=== PATIENT | female | born 1995 | race Caucasian/White ===

== ENCOUNTER → 2018-04-06 | Outpatient (CLI) | payer OTHER, SELFPAY ==
--- NOTE | 2018-04-06 | DI.MRI.S_ITS ---
PROCEDURE: MR LOWER LEG RT WO CON INDICATIONS: EXERTIONAL COMPARTMENT SYNDROME OF RIGHT LOWER EXT TECHNIQUE: Noncontrast coronal and sagittal T1 spin echo and STIR; axial T1 spin echo and T2 fast spin echo with fat saturation through the calf region optimized for right calf visualization on sagittal and axial imaging and with bilateral image acquisition on coronal imaging.. COMPARISON: [facility] [place] Christine, CR, XR TIBIA FIBULA RIGHT, 03/30/2018, 16:20. FINDINGS: Image quality: Excellent. Bones: The visualized bone marrow demonstrates normal signal on all sequences. The overlying cortex appears intact. No fractures lines or intra-osseous lesions. Soft tissues: The scanned muscles demonstrate normal overall bulk and internal signal. There is a nonspecific finding of mild elevated fluid signal in the anterior soft tissues of the midcalf tapering above and below and extending over a craniocaudad length of 10 cm, without underlying associated bone bruising or edema tracking through the overlying superficial muscular fascial plane into the musculature itself. Subcutaneous tissues appear normal as well. No soft tissue masses are present. IMPRESSION: Mild anterior midcalf soft tissue edema involving the subcutaneous fat and tracking to the superficial muscular fascial plane. No underlying cortical abnormality or osseous edema is found. The appearance could reflect sequela of prior blunt injury to the soft tissues in that area. Dictated by: Zeferino Ortiz M.D. on 04/07/2018 at 12:45 Approved by: Zeferino Ortiz M.D. on 04/07/2018 at 12:51
== END ==
LOC: MRI 16:27
PROVIDERS: Visit Provider Orthopaedic Surgery Foot and Ankle Surgery
DX: T79.A21A Traumatic compartment syndrome of right lower extremity, initial encounter (principal)
CPT/HCPCS: 73718

== ENCOUNTER → 2018-07-01 15:13 | Outpatient (CLI) | payer OTHER, SELFPAY ==
--- NOTE | 2018-07-01 | DI.US.S_ITS ---
PROCEDURE: US PERIPH VENOUS LOW EXTREM RT INDICATIONS: RO DVP TECHNIQUE: Real-time imaging, as well as color and pulse Doppler interrogation, were performed of the lower extremity deep veins from the inguinal ligament to the popliteal fossa. COMPARISON: None. FINDINGS: The deep veins are normally compressible, and free of intraluminal thrombus. Color and pulse Doppler demonstrate normal phasic intraluminal flow. There is normal augmentation response to distal compression maneuver. IMPRESSION: No visualized deep venous thrombosis. Dictated by: Akua Reyna M.D. on 07/01/2018 at 16:20 Approved by: Akua Reyna M.D. on 07/01/2018 at 16:20
== END ==
PROVIDERS: Visit Provider Orthopaedic Surgery Foot and Ankle Surgery
DX: T81.49XA Infection following a procedure, other surgical site, initial encounter (principal); M79.89 Other specified soft tissue disorders
CPT/HCPCS: 93971

== ENCOUNTER → 2019-02-28 15:16 | Outpatient (CLI) | payer OTHER, SELFPAY ==
[2019-02-28 15:53] LABS: Appearance Urine UA CLEAR; Bilirubin Urine UA NEGATIVE (NEGATIVE); Color Urine UA YELLOW; Glucose Urine UA NEGATIVE (Negative); Ketones Urine UA NEGATIVE (NEGATIVE); Leukocyte Esterase Urine UA NEGATIVE (NEGATIVE); Nitrite Urine UA NEGATIVE (Negative); Occult Blood Urine UA NEGATIVE (Negative); Protein Urine UA NEGATIVE (Negative); Urobilinogen Urine UA 0.2 E.U./dL (0.2); pH Urine UA 6.5 (4.5-8.0)
[2019-02-28 15:55] LABS: Add Manual Diff / Slide Review NO; Basophils Absolute Auto 0 /uL (0-100); Basophils Percent Auto 0.4 % (0-2); Eosinophils Absolute Auto 100 /uL (0-450); Eosinophils Percent Auto 1.3 % (2-4); Hematocrit 40.4 % (36-46); Hemoglobin 13.4 g/dL (12.0-16.0); Lymphocytes Absolute Auto 2100 /uL (1100-4500); Lymphocytes Percent Auto 33.6 % (25-40); Mean Corpuscular HGB Conc 33.1 % (30-36); Mean Corpuscular Hemoglobin 29.8 PG (26-34); Mean Corpuscular Volume 89.9 fL (80-100); Monocytes Absolute Auto 500 /uL (0-900); Monocytes Percent Auto 7.3 % (3-14); Neutrophils Absolute Auto 3700 /uL (1500-7000); Neutrophils Percent Auto 57.4 % (50-75); Platelet Count 223 X10^3/uL (150-400); Red Blood Cell Count 4.49 X10^6/uL (4.0-5.2); Red Cell Distribution Width 14.5 % (11.6-14.8); White Blood Cell Count 6.4 X10^3/uL (4.5-11.0)
[2019-02-28 16:09] LABS: Hemoglobin A1C% w Est Avg Glu 4.9 % (4.0-6.0)
[2019-02-28 16:38] LABS: Glucose 73 mg/dL (70-100)
[2019-02-28 17:17] LABS: Hepatitis B Surface Antigen NEGATIVE s/c (NEGATIVE); Rubella Antibody IgG 11.6 IU/mL (>15)
[2019-02-28 17:29] LABS: Hep C Virus Ab w/Reflex Quant NEGATIVE s/c (NEGATIVE)
[2019-03-02 17:43] LABS: HIV 1 & 2 Ab/Ag 4th Gen Combo NEGATIVE (NEGATIVE)
[2019-03-02 21:40] LABS: RPR Screen Nonreactive (Nonreactive)
== END ==
DX: Z34.91 Encounter for supervision of normal pregnancy, unspecified, first trimester (principal)
CPT/HCPCS: 36415; 80055; 81003; 82947; 83036; 86787; 86803; 86850; 86900; 86901; 87086; 87389

== ENCOUNTER → 2019-03-08 13:32 | Outpatient (CLI) | payer OTHER, SELFPAY | DX: Z34.02 Encounter for supervision of normal first pregnancy, second trimester (principal); Z3A.13 13 weeks gestation of pregnancy | CPT/HCPCS: 36415; 84163; 84702 ==

== ENCOUNTER → 2019-04-01 15:42 | Outpatient (CLI) | payer OTHER, SELFPAY ==
[2019-04-06 11:52] LABS: Sequential Screen 2nd Trimeste SCREEN NEGATIVE
== END ==
DX: Z34.82 Encounter for supervision of other normal pregnancy, second trimester (principal)
CPT/HCPCS: 36415; 82105; 82677; 84163; 84702; 86336

== ENCOUNTER → 2019-06-08 14:56 | Outpatient (CLI) | payer OTHER, SELFPAY ==
[2019-06-08 17:42] LABS: Hematocrit 35.3 % (36-46); Hemoglobin 11.5 g/dL (12.0-16.0)
[2019-06-08 18:01] LABS: GTT (PREG) 1 Hour PP 50gm Dose 108 mg/dL (76-139)
== END ==
DX: Z34.82 Encounter for supervision of other normal pregnancy, second trimester (principal)
CPT/HCPCS: 36415; 82950; 85014; 85018

== ENCOUNTER → 2019-08-08 10:19 | Outpatient (CLI) | payer OTHER, SELFPAY ==
[2019-08-09 15:19] LABS: Strep Grp B PCR NEG for Grp B Strep
== END ==
DX: Z34.03 Encounter for supervision of normal first pregnancy, third trimester (principal)
CPT/HCPCS: 87653

== ENCOUNTER 2019-09-09 16:30 | Inpatient (IN) | payer OTHER, SELFPAY ==
[2019-09-09 18:07] VITALS: BP 125/74
--- NOTE | 2019-09-09 18:25 | P.HPOB_ITS ---
OB HPI Date/Time Date of admission: 09/09/19 Date Patient Seen: 09/09/19 Time Patient Seen: 18:00 History of Present Condition Chief complaint: LABOR : 1 Para: 0 Estimated Date of Delivery: 09/09/19 Estimated Gestational Age (weeks): 40 Narrative: Mckayla Calvert is a 24 year old at 40 weeks gestation with spontaneous rupture of membranes at approximately 3:45 p.m. today. Patient states contractions began at approximately 5:15 a.m. in the waiting room with the center. complicated by excessive weight gain. History of Present care: good care, initiated at week # (10), number of visits (13) and pounds weight gain (73) Dating criteria: LMP confirmed by 1st trimester US Ultrasounds: normal mid trimester US Obstetrical complications: none Medical complications: none Preadmission Labs Blood type: O (+) positive -: Antibody screen: negative, GBS status: negative, HBsAG: negative, HIV: negative and RPR/VDLR: negative -: Rubella: not immune and Varicella: immune HCT: 40.4 HCAB: negative PAP: Normal Integrated screen: Negative Sequential screen: Negative Urine: Negative 1 hr GTT: 108 Evaluation Evaluation Baseline heart rate: 110 Variability: Moderate (11-25) monitor accelerations: Present monitor decelerations: Variable Contraction Frequency (minutes): 3 Category of Tracing: II Cervical dilation (cm): 1 Cervical effacement (%): 100 station: -2 Non-invasive Membranes Rupture Test: positive [facility] Surgical History H/O fasciotomy (Acute) [place] teeth extracted (Acute) Social History Smoking Status: Never smoker Meds Home Medications and Allergies Home Medications Medication Instructions Recorded Confirmed Type prenat.vits,silvio,zop-gtbg-aafax 1 tab PO DAILY 02/28/19 08/15/19 History omeprazole 20 mg capsule,delayed 20 mg PO DAILY #30 cap 04/01/19 08/15/19 Rx release Double Electric breast Pump and #1 each 09/06/19 Rx Supplies Allergies Allergy/AdvReac Type Severity Reaction Status Date / Time No Known Drug Allergies Allergy Verified 08/15/19 09:12 Review of Systems Constitutional Constitutional: Denies fatigue and Denies fever(s) Cardiovascular Cardiovascular: Denies shortness of breath Respiratory Respiratory: Denies cough and Denies dyspnea Gastrointestinal Gastrointestinal: Denies abdominal pain and Denies change in bowel habits Endocrine Endocrine: Denies fatigue Exam Vital Signs (past 8 hours): Blood pressure 121/78 Heart rate 79 Const General: healthy appearing and in distress (Appears uncomfortable with contractions) HENMT Head: normal to inspection Ears: hearing grossly normal bilaterally Nose: external nose normal Face and sinus: normal facial exam Mouth: oral mucosae normal Eyes General: appearance normal, both eyes and all related structures Neck Neck: normal visual inspection Resp Effort & Inspection: normal respiratory effort Auscultation: clear to auscultation bilaterally Cardio Rate: regular rate Rhythm: regular rhythm Heart Sounds: no murmurs GI Other: Gravid External Female Exam: external appearance normal Manual OB Exam: dilated (1.5), effaced fully and station -2 Presentation: vertex Estimated Weight (lbs): 8 Back/Spine/Pelvis Back: normal to inspection Skin General: no rashes or lesions noted Extrem General: normal to inspection and no pedal edema Assessment and Plan Assessment and Plan Assessment and Plan narrative: 24-year-old at 40 weeks gestation with SROM at 3:45 p.m. today with clear fluid. She is rosa regularly and likely entering active labor. Plan - Expected management - Epidural upon patient request
[2019-09-09 19:41] LABS: Add Manual Diff / Slide Review NO; Basophils Absolute Auto 100 /uL (0-100); Basophils Percent Auto 0.5 % (0-2); Eosinophils Absolute Auto 100 /uL (0-450); Eosinophils Percent Auto 0.5 % (2-4); Hematocrit 35.6 % (36-46); Hemoglobin 11.9 g/dL (12.0-16.0); Lymphocytes Absolute Auto 2900 /uL (1100-4500); Lymphocytes Percent Auto 23.6 % (25-40); Mean Corpuscular HGB Conc 33.4 % (30-36); Mean Corpuscular Hemoglobin 28.7 PG (26-34); Monocytes Absolute Auto 700 /uL (0-900); Monocytes Percent Auto 6.1 % (3-14); Neutrophils Absolute Auto 8400 /uL (1500-7000); Neutrophils Percent Auto 69.3 % (50-75); Platelet Count 162 X10^3/uL (150-400); Red Blood Cell Count 4.14 X10^6/uL (4.0-5.2); Red Cell Distribution Width 14.6 % (11.6-14.8); White Blood Cell Count 12.1 X10^3/uL (4.5-11.0)
[2019-09-09] MEDS: LACTATED RINGERS 1,000 ML 100 ML IV (20:40)
[2019-09-09] MEDS: OXYTOCIN 10 UNIT/ML VIAL IM (23:05)
--- NOTE | 2019-09-09 23:28 | P.PCNOB_ITS ---
Labor & Delivery Delivery date: 09/09/19 Route of delivery: forceps Indication for instrumentation: maternal exhaustion L&D Laceration Description: Perineal - 2nd Degree, Vaginal - 2nd Degree and Labial (right labial first degree) Delivery repair: vicryl Estimated blood loss (mL): 350 Anesthesia type: None Narrative: The patient is a 23-year-old at 40 weeks who gave on 09/09/19 at 10:58 PM. LESLIE: 09/09/19 Hospital problems: 40 weeks of Forceps delivery Maternal exhaustion STAGE I: Labor Patient presented to the center after spontaneous rupture of membranes at 3:45 p.m. with clear fluid. Upon admission she was entering active labor. heart tones were category 1 and 2 throughout stage I due to intermittent variable decelerations. Patient tried nitrous oxide for analgesia however it caused nausea. STAGE II: Delivery Patient was complete and pushed for approximately an hour and a half when the decision was made to consult Dr. Tabares for possible operative delivery due to maternal exhaustion and slow descent with developing caput. Dr. Tabares evaluated the patient and offered forceps delivery which patient accepted. Dr. Tabares applied forceps and pulled while patient pushed to successfully deliver the head at 10:58 p.m. at which point the forceps were removed and remainder of infant delivered easily. Infant was NELIA. There was a loose nuchal cord which infant delivered through. Infant was immediately placed on mother's abdomen. Cord was clamped and cut after approximately 1 minute delay. Apgars were 9 and 9 at 1 and 5 minutes respectively. No resuscitation of the required beyond drying, stimulating and suction. STAGE III: Placenta/Cord Placenta delivered spontaneously at 11:03 p.m. after active management and appeared intact with a three-vessel cord. Pitocin 10 units IM given after delivery of placenta. A second-degree vaginal and perineal laceration was repaired in the usual fashion with 3-0 Vicryl. A superficial right labial laceration was not repaired. Hemostasis assured. Fundus firm below umbilicus. EBL: 350 mL. Needle and sponge counts were correct. The vagina was inspected and no items were left in situ. Patient was doing well with Souleymane, her and at bedside. Baby 1: gender: Male Presentation: vertex position: Right Occiput Anterior Placenta delivery description: Spontaneous cord vessel description: 3 Vessels score (1 min): 9 score (5 min): 9
[2019-09-10] MEDS: LANOLIN OINT 7 GM 1 APPLIC TOP (09:24)
[2019-09-10] MEDS: PRENATAL VIT,CALC/IRON/FOLIC 1 TABLET 1 TAB PO (09:24)
[2019-09-10] MEDS: DOCUSATE 100 MG CAPSULE PO (09:24)
[2019-09-10] MEDS: DERMOPLAST SPRAY 20% 60 ML 1 SPRAY TOP (09:24)
[2019-09-10 10:10] LABS: Hematocrit 31.6 % (36-46); Hemoglobin 10.7 g/dL (12.0-16.0)
--- NOTE | 2019-09-10 10:10 | P.PNOB_ITS ---
Subjective - OB Subjective Patient comments: no complaints [place] baby status: doing well feeding status: exclusively breast feeding Date Patient Seen: 09/10/19 Time Patient Seen: 10:18 Interval history: Patient denies complaints and is doing well. Pain is crampy and she has not taken anything for it. Bleeding similar to a period. going well. Voiding and passing flatus. Exam Vital Signs (past 8 hours): Temp 98.5 BP 125/74 P 71 R 16 Narrative Exam Narrative: Gen: Well-appearing, NAD CV: RRR, no murmur Lungs: CTAB Abd: Soft, bowels tones active x4, uterus firm 1 cm below umbilicus Ext: Trace edema on right (chronic), no edema on left Objective Labs Result Diagrams: 09/10/19 09:59 Labs: Laboratory Results - last 24 hr 09/09/19 09/09/19 19:10 19:10 WBC 12.1 H RBC 4.14 Hgb 11.9 L Hct 35.6 L MCV 86.0 MCH 28.7 MCHC 33.4 RDW 14.6 Plt Count 162 Neut % (Auto) 69.3 Lymph % (Auto) 23.6 L [place] % (Auto) 6.1 Eos % (Auto) 0.5 L Baso % (Auto) 0.5 Neut # (Auto) 8400 H Lymph # (Auto) 2900 [place] # (Auto) 700 Eos # (Auto) 100 Baso # (Auto) 100 Blood Type O Positive Antibody Screen Negative Assessment & Plan Assessment and Plan (1) Forceps delivery: Status: Acute Current Visit: Yes (2) 40 weeks gestation of : Status: Acute Current Visit: Yes Plan day: 1 plan OB: routine care Time Spent With Patient Time: Total time spent is greater than 50% in coordination of care (as documented) at patient's floor/unit and/or counseling patient: Time with patient: less than 15 minutes
--- NOTE | 2019-09-10 11:34 | PM.CN ---
History of Present Illness Consult details Date Patient Seen: 09/09/19 Time Patient Seen: 22:40 Chief complaint: LABOR Reason for consult: Maternal exhaustion Requesting provider: Sarai Sanchez Narrative: Patient is a 24-year-old 1 para 0 at 40 weeks 1 day who arrived on Labor and delivery with spontaneous rupture membranes in active labor. Her 1st stage of labor was just under 5 hours. She did not use any pain medicine other than nitrous oxide. She was complete and pushing with reassuring heart tones. After 2 hours of pushing the patient was not making significant progress and was unable to continue pushing due to fatigue. I was consulted for application of forceps. Meds Home Medications and Allergies Home Medications Medication Instructions Recorded Confirmed Type prenat.vits,silvio,qxf-nilx-qxpzb 1 tab PO DAILY 02/28/19 08/15/19 History omeprazole 20 mg capsule,delayed 20 mg PO DAILY #30 cap 04/01/19 08/15/19 Rx release Double Electric breast Pump and #1 each 09/06/19 Rx Supplies Allergies Allergy/AdvReac Type Severity Reaction Status Date / Time No Known Drug Allergies Allergy Verified 08/15/19 09:12 Exam Narrative Exam Narrative: On examination the patient's abdomen was soft, nontender and gravid. The fetus was found to be 0 to +1 station occiput put anterior slightly asynclitic. Discussed options with the patient of continuing to labor, section, vacuum assisted vaginal delivery and forceps. Patient opted for forceps. The left followed by the right forceps blades were applied and connected. With the next contraction while all the patient pushed traction was the applied with the forceps. The head was delivered over an intact perineum. The rest of the viable male was delivered and placed on maternal abdomen. There was a nuchal cord that was released. There appeared to only be a second-degree tear. resumed care of the patient. The male infant had some minor bruising from the forceps. Apgars were 9 and 9. Both mother doing well. Objective Labs Result Diagrams: 09/10/19 09:59 Labs: Laboratory Results - last 24 hr 09/09/19 09/09/19 09/10/19 19:10 19:10 09:59 WBC 12.1 H RBC 4.14 Hgb 11.9 L 10.7 L Hct 35.6 L 31.6 L MCV 86.0 MCH 28.7 MCHC 33.4 RDW 14.6 Plt Count 162 Neut % (Auto) 69.3 Lymph % (Auto) 23.6 L [place] % (Auto) 6.1 Eos % (Auto) 0.5 L Baso % (Auto) 0.5 Neut # (Auto) 8400 H Lymph # (Auto) 2900 [place] # (Auto) 700 Eos # (Auto) 100 Baso # (Auto) 100 Blood Type O Positive Antibody Screen Negative Assessment & Plan Assessment and plan (1) Forceps delivery: Current visit: Yes Status: Acute Assessment & Plan narrative: Patient with maternal exhaustion who requested forceps delivery which was accomplished without difficulty. Both infant and mother doing well. See Dr. Sanchez's note for the rest of the patient's care.
[2019-09-10] MEDS: IBUPROFEN 600 MG TABLET PO (23:10)
--- NOTE | 2019-09-11 09:20 | P.DS_ITS ---
Discharge Providers Provider Date of admission: 09/09/19 16:30 Discharge Date: 09/11/19 Consults: 09/10/19 23:27 Consult to Hosted Services Analyst Routine Comment: Discharge provider: Sarai Sanchez DO Summary Hospital Course Date Patient Seen: 09/11/19 Time Patient Seen: 09:45 Hospital Course: Patient is a 24-year-old G1 now P1 after forceps assisted vaginal delivery on 09/09/19 at 40 weeks gestation. Patient presented after SROM and progressed quickly without augmentation. She tried nitrous oxide but it made her nauseated. She was complete and pushed for approximately an hour and half when the decision was made to consult Dr. Tabares for possible operative delivery for maternal exhaustion and slow descent. Dr. Tabares successfully delivered with forceps with Apgars of 9 and 9. did have significant facial bruising and swelling after delivery but did well. patient was eating, drinking, ambulating, voiding and passing flatus. Vaginal bleeding moderate and decreasing. Patient required minimal medications for pain control. On day of discharge she had 2 separate temporal temperatures of 100.4 which resolved spontaneously without intervention. Oral temperature was 99.0?. Patient denied worsening uterine tenderness, malodorous discharge, dysuria, cough or congestion. No tachycardia or hypotension. Only risk factor for fever is forceps delivery. She was GBS negative and total rupture of membranes was only 6 hours. She did not have any fevers during labor. 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 She was counseled to call for fevers at home of 100.4 or greater, bleeding through more than a pad an hour or severe pain. She will follow-up with Dr. Angeles in 4 weeks. Peripartum Data Infant Delivery Method: Natural Vaginal (Forceps for maternal exhaustion) Laceration description: Labial (First degree the right, not repaired) [place] 1: Gender: Male Discharge Diagnosis (1) Forceps delivery: Status: Acute (2) 40 weeks gestation of : Status: Acute Status at Discharge Functional status at discharge: independent ambulation Overall status at discharge: patient is progressing back to baseline Time Spent with Patient Time attestation: Total time spent providing and/or coordinating discharge services: Time spent: Less than 30 minutes Objective Labs Result Diagrams: 09/10/19 09:59 Labs: Laboratory Results - last 24 hr 09/10/19 09:59 Hgb 10.7 L Hct 31.6 L Exam Vital Signs (past 8 hours): Temperature 98.4? Blood pressure 121/67 Heart rate 87 Respirations 16 Narrative Exam Narrative: General: Awake and alert, no acute distress. HEENT: NCAT, EOMI, moist oral mucosa CV: Regular rate and rhythm, no murmurs, rubs or gallops Lungs: CTAB, no wheezes, rales, or rhonchi Abdomen: Soft, nontender; bowel tones active; uterus firm 1 cm below umbilicus without significant tenderness Extremities: Warm, no edema on the left, trace on the right which is chronic Discharge Plan Discharge Plan Patient Disposition: Home Discharge orders & Medications Prescriptions: New docusate sodium [DOK] 100 mg Capsule 100 mg PO DAILY Qty: 30 RF: 0 ibuprofen 600 mg Tablet 600 mg PO Q6HR PRN (Reason: Pain, Mild (1-3)) Qty: 30 RF: 0 Continued prenat.vits,silvio,tbx-vqas-mcfwr tablet 1 tab PO DAILY RF: 0 No Action (DME) Double Electric breast Pump and Supplies See Rx Instructions .ROUTE .MEDSUPPLY Qty: 1 RF: 0 Follow up/Referrals: Dereje Angeles MD [Physician] - 1 Month Visit Report/Discharge Packet Visit Report Forms: Patient Portal/API, Stroke Signs & Symptoms
[2019-09-11] MEDS: PRENATAL VIT,CALC/IRON/FOLIC 1 TABLET 1 TAB PO (10:08)
[2019-09-11] MEDS: DOCUSATE 100 MG CAPSULE PO (10:08)
[2019-09-11 12:26] VITALS: BP 116/71; PULSE 92; RESP 16; TEMP 37.2
== END 2019-09-11 13:33 | disposition home or self-care (01) | DRG 807 ==
PROVIDERS: Admitting Provider Family Medicine; Visit Provider Family Medicine
DX: O70.1 Second degree perineal laceration during delivery (principal); Z37.0 Single live birth; Z3A.40 40 weeks gestation of pregnancy; O75.81 Maternal exhaustion complicating labor and delivery; O76 Abnormality in fetal heart rate and rhythm complicating labor and delivery
CPT/HCPCS: 36415; 59050; 59400; 59409; 85014; 85018; 85025; 86850; 86900; 86901; G0379; J2590

== ENCOUNTER → 2021-01-28 15:42 | Outpatient (CLI) | payer OTHER, SELFPAY ==
[2021-01-28 21:15] LABS: Urine N gonorrhoeae NOT DETECTED
[2021-01-28 21:33] LABS: Urine Chlamydia NOT DETECTED
== END ==
PROVIDERS: Visit Provider Obstetrics & Gynecology
DX: Z34.81 Encounter for supervision of other normal pregnancy, first trimester (principal); Z11.3 Encounter for screening for infections with a predominantly sexual mode of transmission; Z3A.09 9 weeks gestation of pregnancy
CPT/HCPCS: 87491; 87591

== ENCOUNTER → 2023-12-11 15:23 | Outpatient (CLI) | payer OTHER, SELFPAY ==
--- NOTE | 2023-12-11 | DI.US.S_ITS ---
PROCEDURE: US OB >= 14 WEEKS FETUS INDICATIONS: ANATOMY SCAN OUTSIDE/PRIOR DATING DATA: Last menstrual period (LMP): Unknown. LMP-based estimated date of delivery (LESLIE): Not available. First dating scan (date and location): Not performed. Estimated date of delivery (LESLIE) from first dating scan: April 16, 2024 TECHNIQUE: Real-time scanning was performed of the fetus, with image documentation and biometric measurements. Endovaginal scanning: Not performed COMPARISON: [facility], , OB >= 14 WEEKS FETUS, 05/06/2019, 15:12. FINDINGS: General: A single living intrauterine gestation is present. Presentation: Breech. Placenta: Placental position is anterior , without previa. Amniotic fluid index: 15.4 cm, normal range is 5-24 cm. Single deepest vertical pocket is 6.4 cm. heart rate: 130 beats per minute. Maternal cervical canal: 3.7 cm long. Normal lower limit is 2.5 cm. biometrics: Biparietal diameter: 5.2 cm, 21 weeks, 5 days Head circumference: 19.7 cm, 21 weeks, 6 days Abdominal circumference: 17.2 cm, 22 weeks, 1 day Femur length: 3.7 cm, 21 weeks 5 days Clinically estimated gestational age: 21 weeks 6 days Composite gestational age from present scan: 21 weeks, 6 days Estimated weight and percentile: 464 g Anatomic survey: Neuro: Ventricles are non-dilated at less than 10 mm. Cisterna magna is normal at 3-11 mm. Cerebellum is normal in size and morphology. Nuchal skin fold: Not visualized. Face: Nose and lips, facial profile are normal. Spine: No evidence for spina bifida. Heart: 4-chambered heart is present, with normal left ventricular outflow tract. Right ventricular outflow tract was not visualized. Diaphragm: Diaphragm is intact. Stomach: Left-sided stomach is present. Kidneys: Right kidney has a normal appearance. The left kidney was not well visualized. Cord: 3-vessel cord has orthotopic insertion. Bladder: Normal in size. Extremities: All 4 extremities identified. IMPRESSION: 1. Single live intrauterine gestation with a composite gestational age of 21 weeks, 6 days which is concordant with dates by initial scan. 2. Nuchal region, left kidney, and the right ventricular outflow tract were not well characterized. No other sonographic anatomic abnormalities. We strive to produce accurate, complete, and clear reports of imaging services. To assist us in improving patient care, this report was composed using standard report templates and voice recognition software. Therefore, it may contain abnormal punctuation, insertions and/or omissions. Occasional wrong-word or sound-alike substitutions may occur. Though we review the report and make efforts to correct it, we do recommend that the report be read carefully in proper context to recognize any text inaccuracies. Dictated by: Maura Friend M.D. on 12/12/2023 at 20:45 Approved by: Maura Friend M.D. on 12/12/2023 at 20:49
== END ==
LOC: US 15:24
PROVIDERS: Referring Provider Midwife; Visit Provider Midwife
DX: Z34.82 Encounter for supervision of other normal pregnancy, second trimester (principal); Z3A.21 21 weeks gestation of pregnancy
CPT/HCPCS: 76811